=== PATIENT | female | born 1950 | race Caucasian/White ===

== ENCOUNTER 2016-12-22 08:51 | Inpatient (IN) | payer OTHER, BC ==
[~2016-12-22] VITALS: Ht 162.6 cm; Wt 90.0 kg
[~2016-12-22 08:51] MED LIST: ALPHA LIPOIC A200 M1 PO; ASPIRIN EC325 MG PO; BIOTIN10000 MC1 PO; CELEBREX200 MG PO; CITRACAL + D E1 EACH PO; CRANBERRY500 M2 PO; ESTRACE1 MG PO; ESTRACE42.5 GM VG; FERROUS SULFAT325 MG PO; FISH OIL 1,2001 EAC4 PO; FISH OIL 1,4001 EACH PO; GLUCOSAMINE-CH1 EAC6 PO; GLUCOSAMINE-CH1 EACH PO; HYDROCODON-ACE1 EAC7 PO; LUTEIN-ZEAXANT1 EACH PO; MULTIVITAMIN1 EAC2 PO; SENIOR TABS1 EACH PO; SENNA PLUS TAB1 EACH PO; TYLENOL ARTHRI650 MG PO; VITAMIN C1000 MG PO
[2016-12-22 09:23] VITALS: BP 121/91
[2016-12-22 15:07] LABS: HEMATOCRIT 38.1 % (36.0-46.0); MCH 28.4 PG (29.0-34.0); MCHC 32.5 G/DL (30.0-36.0); MCV 87.2 FL (83-99); MEAN PLAT.VOLUME 9.9 uM^3 (9.5-12.4); PLATELET COUNT 189 K/uL (156-360); RBC DIS.WIDTH-SD 44.1 % (39-53); RED BLOOD COUNT 4.37 M/uL (3.80-5.20); WHITE BLOOD COUNT 5.6 K/uL (4.1-10.2)
[2016-12-22 16:43] VITALS: BP 126/85
[2016-12-22 16:50] VITALS: BP 126/85
[2016-12-22 20:22] VITALS: BP 116/72
[2016-12-22 23:53] VITALS: BP 112/68
[2016-12-23 03:53] VITALS: BP 126/78
[2016-12-23 06:17] LABS: HEMATOCRIT 41.2 % (36.0-46.0); MCV 87.3 FL (83-99)
[2016-12-23 06:39] LABS: ANION GAP 9 MEQ/L (2-14); CHLORIDE 100 MEQ/L (99-109); GFR ESTIMATE (CALCULATED) > 59 mL/min/; GLUCOSE 110 mg/dL (70-99); POTASSIUM 3.8 MEQ/L (3.7-5.4); SAMPLE HEMOLYSIS CHECK 0; SAMPLE ICTERIC CHECK 0; SAMPLE LIPEMIA CHECK 0; SODIUM 136 MEQ/L (136-147); UREA NITROGEN (BUN) 9 mg/dL (9-23)
[2016-12-23 07:33] VITALS: BP 109/65
[2016-12-23 11:59] VITALS: BP 118/76
[2016-12-23 15:45] VITALS: BP 114/73
[2016-12-23 19:46] VITALS: BP 110/74
[2016-12-23 23:51] VITALS: BP 118/66
[2016-12-24 07:04] LABS: HEMATOCRIT 33.7 % (36.0-46.0); MCV 87.1 FL (83-99)
[2016-12-24 07:33] VITALS: BP 112/74
[2016-12-24] MEDS ORDERED: CELECOXIB200 MG PO (08:26)
[2016-12-24] MEDS ORDERED: DOCUSATE SODIU100 MG PO (08:26)
[2016-12-24] MEDS ORDERED: LOVENOX40 MG/0.4 SC (08:26)
[2016-12-24] MEDS ORDERED: HYDROCODON-ACE1 EAC7 PO (08:26)
[2016-12-24 11:45] VITALS: BP 131/66
== END 2016-12-24 14:48 | DRG 470 ==
LOC: 2SOUTH 08:51 → 3EAST 08:51 → EDSTATUS 09:05 → SDC 09:05 → 2SOUTH 09:06 → 3EAST 16:24
PROVIDERS: Orthopaedic Surgery
PROC: 0SRC0J9 Replacement of Right Knee Joint with Synthetic Substitute, Cemented, Open Approach (ICD-10-PCS; principal; 2016-12-22)
DX: M17.11 Unilateral primary osteoarthritis, right knee (principal); R91.1 Solitary pulmonary nodule; Z87.891 Personal history of nicotine dependence; E78.5 Hyperlipidemia, unspecified; Z96.652 Presence of left artificial knee joint
CPT/HCPCS: 73560; 80048; 85014; 85018; 85027; J1100; J1170; J1650; J2250; J2405; J3010; J7050